=== PATIENT | female | born 1955 | race Caucasian/White ===

== ENCOUNTER 2021-05-03 19:03 | Emergency (ER) | payer MEDICARE ==
[2021-05-03 19:11] VITALS: TEMP 97.9
[2021-05-03 19:30] LABS: Basophils # (A) 0.1 k/uL (0-0.2); Basophils % (A) 1 %; Eosinophils # (A) 0.3 k/uL (0-0.7); Eosinophils % (A) 3 %; HCT 39.2 % (34.0-46.0); Lymphocytes # (A) 3.4 k/uL (1.0-4.8); Lymphocytes % (A) 39 %; MCH 28.8 pg (25.0-35.0); MCHC 33.2 g/dL (31.0-37.0); MCV 86.8 fL (80.0-100.0); Mean Platelet Volume 7.4; Monocytes # (A) 0.5 k/uL (0-1.0); Monocytes % (A) 5 %; Neutrophils # (A) 4.4 k/uL (1.3-7.7); Neutrophils % (A) 51 %; Platelet Count 312 k/uL (150-450); RBC 4.52 m/uL (3.80-5.40); RDW 12.6 % (11.5-15.5); WBC 8.7 k/uL (3.8-10.6)
[2021-05-03 19:39] LABS: Albumin 4.2 g/dL (3.5-5.0); Calcium 9.2 mg/dL (8.4-10.2); Magnesium 1.7 mg/dL (1.6-2.3); Potassium 3.8 mmol/L (3.5-5.1); Total Bilirubin 0.5 mg/dL (0.2-1.3); Total Protein 7.2 g/dL (6.3-8.2)
[2021-05-03 19:43] LABS: INR 0.9 (<1.2); Partial Thromboplastin Time 23.2 sec (22.0-30.0)
--- NOTE | 2021-05-03 20:39 | XR ---
EXAMINATION TYPE: XR chest 2V DATE OF EXAM: 05/03/2021 8:20 PM COMPARISON:None TECHNIQUE: XR chest 2V Frontal and lateral views of the chest. CLINICAL INDICATION:Female, 65 years old with history of Chest Pain; FINDINGS: Lungs/Pleura: There is no evidence of pleural effusion, focal consolidation, or pneumothorax. Pulmonary vascularity: Unremarkable. Heart/mediastinum: Cardiomediastinal silhouette is unremarkable. Musculoskeletal: No acute osseous pathology. Left clavicle fixation hardware which is intact. IMPRESSION: No acute cardiopulmonary disease/process.
[2021-05-03] MEDS ORDERED: diphenhydrAMINE 50 MG/ML 1 ML VIAL IVP STA (23:22)
[2021-05-03] MEDS ORDERED: FAMOTIDINE 20 MG/2 ML VIAL IV STA (23:22)
[2021-05-03] MEDS ORDERED: methylPREDNISolone SOD SUCCI 125 MG/2 ML VIAL IV STA (23:22)
--- NOTE | 2021-05-04 00:04 | CT ---
EXAMINATION TYPE: CT chest angio for PE DATE OF EXAM: 05/03/2021 COMPARISON: None HISTORY: chest pain CT DLP: 273.30 mGycm Automated exposure control for dose reduction was used. CONTRAST: Performed with IV Contrast, patient injected with 70ml mL of Isovue 370. There are Three-D postprocessed images. The lungs are clear of consolidation. There is no evidence of a pulmonary mass. There is subsegmental atelectasis at the lung bases. There is no pleural effusion. There is no pericardial effusion. Upper abdominal soft tissues are intact. Heart size is normal. There is no mediastinal adenopathy. There are no hilar masses. Thoracic aorta i s intact. There is no aneurysm or dissection. There is normal contrast opacification of the pulmonary arteries. There are no filling defects. The t horacic spine is intact. Sternum is intact. IMPRESSION: No evidence of pulmonary embolism. Normal heart.
--- NOTE | 2021-05-04 00:05 | ED ---
Chest Pain HPI - General Chief Complaint: Chest Pain Stated Complaint: chest pain Source: patient Mode of arrival: wheelchair Limitations: no limitations - History of Present Illness Initial Comments: [place] 5-year-old female presents emergency Department with reported chest pain. States it is located in the left side of her chest and radiates to her left arm and jaw. Does have been present for the past 2 days. It has been intermittent. Denies that it is reproducible. She has not been taking any medications for her symptoms. Denies previous history of cardiac or pulmonary disease. Patient has not had any stress testing in her heart. States she's been under considerable amount of stress as she is living with her brother who has 2 special needs children. She denies history of DVT or PE. No lower trauma swelling. No ripping or tearing sensation to her back. No other alleviating, precipitating or modifying factors - Related Data Home Medications Medication Instructions Recorded Confirmed Aspirin EC [Ecotrin Low Dose] 81 mg PO ONCE PRN 05/03/21 05/03/21 Famotidine [Pepcid AC] 20 mg PO DAILY PRN 05/03/21 05/03/21 Allergies Allergy/AdvReac Type Severity Reaction Status Date / Time diatrizoate sodium Allergy Unknown Verified 05/03/21 23:29 [From Hypaque] diphenhydramine Allergy Unknown Verified 05/03/21 23:29 [From Benadryl] meperidine [From Demerol] Allergy Unknown Verified 05/03/21 23:29 morphine Allergy Unknown Verified 05/03/21 23:29 sumatriptan [From Imitrex] Allergy Unknown Verified 05/03/21 23:29 hydrocodone AdvReac Unknown Verified 05/03/21 23:29 prochlorperazine AdvReac Unknown Verified 05/03/21 23:29 [From Compazine] Review of Systems ROS Statement: Those systems with pertinent positive or pertinent negative responses have been documented in the HPI. ROS Other: All systems not noted in ROS Statement are negative. EKG Findings - EKG Comments: EKG Findings:: EKG demonstrates a sinus rhythm with a ventricular rate of 80. LA interval 152. QRS 92. QTC of 459. No acute ST segment elevations or depressions concerning for ischemic changes Past Medical History Past Medical History: Rheumatoid Arthritis (RA) Additional Past Medical History / Comment(s): arthritis History of Any Multi-Drug Resistant Organisms: None Reported Past Surgical History: Section, Hysterectomy, Joint Replacement, Orthopedic Surgery, Tonsillectomy Past Psychological History: No Psychological Hx Reported Smoking Status: Never smoker Past Alcohol Use History: Occasional Past Drug Use History: None Reported General Exam Limitations: no limitations Course Vital Signs 05/03/21 05/04/21 19:07 00:51 Temperature 97.9 F Pulse Rate 93 82 Respiratory 20 18 Rate Blood Pressure 137/85 134/73 O2 Sat by Pulse 97 97 Oximetry Chest Pain MDM - MDM Upon arrival patient is placed into room 5. History and physical exam is performed. IV access established laboratory studies were conducted. 12-lead EKG was performed. Laboratory studies are reviewed and troponin is negative. Patient is sent over for a CT of her chest that she does report that the pain causes numbness in her left arm. CT demonstrates no signs of PE. No dissection. I did recommend admission as the patient's symptoms are extremely concerning however patient is requesting discharge home at this time. She is instructed of the risks of leaving without further workup to include permanent disability and even . Patient is understanding, cable making her own decisions will be discharged home at this time. Instructed that she needs a full cardiac workup to include stress test and echo. Patient understood. If she agrees to further workup to return to the hospital. Patient agrees a few times discharged home stable condition Disposition Clinical Impression: Chest pain Disposition: HOME SELF-CARE Condition: Stable Instructions (If sedation given, give patient instructions): Chest Pain (ED) Additional Instructions: You need a full cardiac workup to include Holter monitoring and echo. Return to the emergency room for any new or worsening symptoms Is patient prescribed a controlled substance at d/c from ED?: No Referrals: None,Stated [Primary Care Provider] - 1-2 days Sánchez Noyola MD [STAFF PHYSICIAN] - 1-2 days Larissa Bloom MD [STAFF PHYSICIAN] - 1-2 days Rea Jones MD [REFERRING] - 1-2 days Time of Disposition: 00:34
[2021-05-04 01:10] VITALS: BP 134/73; PULSE 82; RESP 18
== END 2021-05-04 00:52 | disposition home or self-care (01) ==
LOC: EC 19:03
DX: R07.89 Other chest pain (principal); Z79.82 Long term (current) use of aspirin; Z79.899 Other long term (current) drug therapy
CPT/HCPCS: 36415; 93005; 80053; 83735; 84484; 85025; 85610; 85730; 71046; 71275; 99285; 96374; 96375; J2930; Q9967